=== PATIENT | male | born 1955 | race Asian ===

== ENCOUNTER 2023-07-25 16:32 | Inpatient (IN) | payer OTHER ==
[~2023-07-25] VITALS: Ht 170.2 cm; Wt 76.9 kg
[2023-07-25] MEDS: ASPirin 325 MG TAB PO ONE (16:54)
[2023-07-25 17:00] VITALS: PULSE 99; RESP 16; O2SAT 96
[2023-07-25] MEDS: NITROGLYCERIN 0.4 MG SL TAB SL ONE (17:00)
[2023-07-25 17:05] LABS: Basophils # (auto) 0.1 10 ^3/uL (0-0.2); Basophils % (auto) 0.9 % (0.0-2.0); Eosinophils # (auto) 0.2 10 ^3/uL (0-0.8); Eosinophils % (auto) 1.3 % (0.0-7.0); Hematocrit 42.9 % (41.0-53.0); Hemoglobin 14.1 g/dL (13.5-17.5); Lymphocytes # (auto) 1.4 10 ^3/uL (0.4-5.4); Lymphocytes % (auto) 11.2 % (10.0-50.0); Mean Corpuscular Hemoglobin 29.3 pg (28.0-32.0); Mean Corpuscular Hgb Conc. 32.8 g/dL (32.0-36.0); Mean Corpuscular Volume 89.4 fL (80.0-100.0); Monocytes # (auto) 0.7 10 ^3/uL (0-1.3); Monocytes % (auto) 5.9 % (0.0-12.0); Neutrophils # (auto) 10.2 10 ^3/uL (1.6-8.6); Neutrophils % (auto) 80.7 % (37.0-80.0); Nucleated Red Blood Cells % 0.1 %; Red Cell Distribution Width 13.8 % (11.8-14.3); White Blood Cell 12.6 10^3/uL (4.4-10.8)
[2023-07-25 17:22] LABS: Alanine Aminotransferase 21 U/L (7-40); Alkaline Phosphatase 76 U/L (46-116); Anion Gap 8 (5-15); Aspartate Aminotransferase 19 U/L (13-40); BUN/Creatinine Ratio 34.2 (10.0-20.0); Blood Urea Nitrogen 25 mg/dL (9-23); Calcium 8.3 mg/dL (8.7-10.4); Carbon Dioxide 23 mmol/L (20-30); Chloride 107 mmol/L (98-107); Glucose 194 mg/dL (74-106); Potassium 3.8 mmol/L (3.5-5.1); Sodium 138 mmol/L (136-145)
[2023-07-25 17:23] LABS: Bilirubin, Total 0.6 mg/dL (0.2-1.0)
[2023-07-25 17:29] LABS: INR 1.09 (0.9-1.15); Partial Thromboplastin Time 31.6 SEC (24.5-34.5); Prothrombin Time 11.4 sec (9.3-11.8)
[2023-07-25] MEDS: ENOXAPARIN SOD 80 MG/0.8ML SYRINGE SC ONE (17:59)
[2023-07-25] MEDS: FUROSEMIDE 20 MG/2 ML VIAL IV ONE (18:05)
[2023-07-25 19:40] VITALS: PULSE 98; RESP 16; O2SAT 95
[2023-07-25 20:14] LABS: Urine Bacteria None Seen /hpf (None Seen)
[2023-07-25 20:34] LABS: Urine Blood TRACE /uL (Negative); Urine Clarity Clear (Clear); Urine Color Yellow (Yellow); Urine Mucus FEW (None Seen); Urine Protein, UAD 2+ (Negative); Urine Specific Gravity 1.021 (1.001-1.035); Urine Urobilinogen Normal (Negative); Urine WBC 4 /hpf (0 - 3)
[2023-07-25] MEDS ORDERED: DOCUSATE SOD 100 MG CAP PO PRN (21:45)
[2023-07-25] MEDS ORDERED: DEXTROSE (50%) 50ML SYRG IV PRN (21:45)
[2023-07-25] MEDS ORDERED: hydrALAZINE HCL 20 MG/ML VL IV PRN (21:45)
[2023-07-25] MEDS: CARVEDILOL 3.125 MG TAB PO SCH (22:00)
[2023-07-25] MEDS: ACCU-CHEK COMFORT CURVE STRIP VI SCH (22:15)
[2023-07-25] MEDS: SODIUM CHLOR 0.9% PF (SALINE LOCK) 10ML VIAL/SYR IV SCH (22:20)
[2023-07-25] MEDS: ATORVASTATIN 20 MG TAB PO SCH (22:29)
[2023-07-25] MEDS: ALBUMIN 25% 100 ML IV ONE (22:29)
[2023-07-25] MEDS: InsuLIN REG 1unit/0.01ml Soln (100units/ml) SC SCH (22:30)
[2023-07-26] VITALS (11 sets, daily range): BP systolic 106–133; BP diastolic 59–82; PULSE 79–106; RESP 16–20; TEMP 97.6–97.8; O2SAT 98–100
[2023-07-26] MEDS: InsuLIN REG 1unit/0.01ml Soln (100units/ml) SC SCH (06:20)
[2023-07-26 06:23] LABS: Basophils # (auto) 0.1 10 ^3/uL (0-0.2); Basophils % (auto) 0.9 % (0.0-2.0); Eosinophils # (auto) 0.2 10 ^3/uL (0-0.8); Eosinophils % (auto) 1.8 % (0.0-7.0); Hematocrit 39.3 % (41.0-53.0); Hemoglobin 12.9 g/dL (13.5-17.5); Lymphocytes # (auto) 1.6 10 ^3/uL (0.4-5.4); Lymphocytes % (auto) 12.5 % (10.0-50.0); Mean Corpuscular Hemoglobin 29.4 pg (28.0-32.0); Mean Corpuscular Hgb Conc. 32.9 g/dL (32.0-36.0); Mean Corpuscular Volume 89.3 fL (80.0-100.0); Monocytes # (auto) 0.9 10 ^3/uL (0-1.3); Monocytes % (auto) 7.2 % (0.0-12.0); Neutrophils # (auto) 9.7 10 ^3/uL (1.6-8.6); Neutrophils % (auto) 77.6 % (37.0-80.0); Red Blood Cells 4.41 10^6/uL (4.5-5.90); Red Cell Distribution Width 13.4 % (11.8-14.3); White Blood Cell 12.5 10^3/uL (4.4-10.8)
[2023-07-26 06:40] LABS: Alanine Aminotransferase 19 U/L (7-40); Alkaline Phosphatase 65 U/L (46-116); Anion Gap 8 (5-15); Aspartate Aminotransferase 16 U/L (13-40); BUN/Creatinine Ratio 39.7 (10.0-20.0); Blood Urea Nitrogen 25 mg/dL (9-23); Calcium 7.9 mg/dL (8.5-10.1); Carbon Dioxide 22 mmol/L (20-30); Chloride 109 mmol/L (98-107); Glucose 147 mg/dL (74-106); Potassium 3.8 mmol/L (3.5-5.1); Sodium 139 mmol/L (136-145)
[2023-07-26 06:41] LABS: Bilirubin, Total 0.6 mg/dL (0.2-1.0); Total Protein 4.5 g/dL (5.7-8.2)
[2023-07-26] MEDS: HYDROcodone-ACET 5/325MG TAB PO PRN (08:56)
[2023-07-26] MEDS: CLOPIDOGREL BISULFATE 75 MG TAB PO SCH (10:30)
[2023-07-26] MEDS: ASPirin 81 mg TAB PO SCH (10:31)
[2023-07-26] MEDS: FUROSEMIDE 40 MG/4 ML VIAL IV SCH (10:31)
[2023-07-26] MEDS: cefTRIAXone 1GM/50ML D5W 50 ML IV ONE (15:22)
[2023-07-26] MEDS: NITROGLYCERIN 0.4 MG SL TAB SL PRN (15:47)
[2023-07-26] MEDS: MORPHINE SULFATE INJ 2 MG/ml SYRG IV PRN (15:54)
[2023-07-26] MEDS: ONDANSETRON HCL 4 MG/2 ML VIAL IV PRN (16:04)
[2023-07-26 18:08] LABS: Basophils # (auto) 0.1 10 ^3/uL (0-0.2); Basophils % (auto) 0.8 % (0.0-2.0); Eosinophils # (auto) 0.2 10 ^3/uL (0-0.8); Eosinophils % (auto) 1.8 % (0.0-7.0); Hematocrit 40.1 % (41.0-53.0); Hemoglobin 13.1 g/dL (13.5-17.5); Lymphocytes # (auto) 1.2 10 ^3/uL (0.4-5.4); Lymphocytes % (auto) 10.3 % (10.0-50.0); Mean Corpuscular Hemoglobin 29.3 pg (28.0-32.0); Mean Corpuscular Hgb Conc. 32.7 g/dL (32.0-36.0); Mean Corpuscular Volume 89.7 fL (80.0-100.0); Monocytes # (auto) 0.6 10 ^3/uL (0-1.3); Monocytes % (auto) 5.6 % (0.0-12.0); Neutrophils # (auto) 9.3 10 ^3/uL (1.6-8.6); Neutrophils % (auto) 81.5 % (37.0-80.0); Red Blood Cells 4.47 10^6/uL (4.5-5.90); Red Cell Distribution Width 13.5 % (11.8-14.3); White Blood Cell 11.5 10^3/uL (4.4-10.8)
[2023-07-26 18:23] LABS: INR 1.12 (0.9-1.15); Prothrombin Time 11.7 sec (9.3-11.8)
[2023-07-26 18:48] LABS: Erythrocyte Sedimentation Rate 17 mm/hr (0-20)
[2023-07-26] MEDS: HEPARIN DRIP/D5W 100UNITS/ML 250 ML IV SCH (18:51)
[2023-07-26] MEDS: ATORVASTATIN 20 MG TAB PO SCH (21:57)
[2023-07-26] MEDS: SACUBITRIL-VALSARTAN 24mg/26mg TAB PO SCH (21:57)
[2023-07-26] MEDS: COLCHICINE 0.6 MG CAP PO SCH (21:57)
[2023-07-26] MEDS: MAGNESIUM OXIDE 400 MG TAB PO SCH (21:57)
[2023-07-26] MEDS: METOPROLOL TARTRATE 25 MG TAB PO SCH (22:07)
[2023-07-27] VITALS (8 sets, daily range): BP systolic 101–142; BP diastolic 60–88; PULSE 67–92; RESP 14–20; TEMP 97.6–98.4; O2SAT 93–99
[2023-07-27 02:16] LABS: INR 1.09 (0.9-1.15); Partial Thromboplastin Time 34.4 SEC (24.5-34.5); Prothrombin Time 11.4 sec (9.3-11.8)
[2023-07-27] MEDS: HEPARIN SODIUM (PORCINE) 5000 UNITS/ML 1ML VIAL IV ONE ×2 (03:07→18:41)
[2023-07-27] MEDS: HEPARIN DRIP/D5W 100UNITS/ML 250 ML IV SCH ×2 (03:30→18:42)
[2023-07-27 06:42] LABS: Anion Gap 9 (5-15); Calcium 8.4 mg/dL (8.7-10.4); Carbon Dioxide 23 mmol/L (20-30); Chloride 105 mmol/L (98-107); Potassium 3.6 mmol/L (3.5-5.1); Sodium 137 mmol/L (136-145)
[2023-07-27 06:46] LABS: Glucose 131 mg/dL (74-106)
[2023-07-27 06:48] LABS: BUN/Creatinine Ratio 31.9 (10.0-20.0); Blood Urea Nitrogen 22 mg/dL (9-23)
[2023-07-27 06:50] LABS: Basophils # (auto) 0.1 10 ^3/uL (0-0.2); Basophils % (auto) 0.7 % (0.0-2.0); Eosinophils # (auto) 0.2 10 ^3/uL (0-0.8); Eosinophils % (auto) 1.8 % (0.0-7.0); Hematocrit 41.9 % (41.0-53.0); Lymphocytes # (auto) 2.1 10 ^3/uL (0.4-5.4); Lymphocytes % (auto) 16.5 % (10.0-50.0); Mean Corpuscular Hemoglobin 29.8 pg (28.0-32.0); Mean Corpuscular Hgb Conc. 33.5 g/dL (32.0-36.0); Mean Corpuscular Volume 89.2 fL (80.0-100.0); Monocytes % (auto) 7.7 % (0.0-12.0); Neutrophils # (auto) 9.4 10 ^3/uL (1.6-8.6); Neutrophils % (auto) 73.3 % (37.0-80.0); Nucleated Red Blood Cells % 0.1 %; Red Blood Cells 4.69 10^6/uL (4.5-5.90); Red Cell Distribution Width 13.5 % (11.8-14.3); White Blood Cell 12.9 10^3/uL (4.4-10.8)
[2023-07-27] MEDS: ACETAMINOPHEN 325 MG TAB PO PRN (07:43)
[2023-07-27] MEDS: cefTRIAXone 1GM/50ML D5W 50 ML IV SCH (08:11)
[2023-07-27] MEDS ORDERED: DAPAGLIFLOZIN 5 MG TAB PO SCH (10:00)
[2023-07-27 10:30] LABS: INR 1.12 (0.9-1.15); Partial Thromboplastin Time 49.8 SEC (24.5-34.5); Prothrombin Time 11.7 sec (9.3-11.8)
[2023-07-27] MEDS: EMPAGLIFLOZIN 10 MG TAB PO SCH (11:40)
[2023-07-27 11:42] LABS: Amphetamine Screen, Urine Neg (NEGATIVE); Barbiturate Scree,Urine Neg (NEGATIVE); Benzodiazephine Screen, Urine Neg (NEGATIVE); Cocaine Screen, Urine Neg (NEGATIVE)
[2023-07-27 11:43] LABS: Cannabinoid Screen, Urine Neg (NEGATIVE); Opiate Scree,Urine Neg (NEGATIVE); Phencyclidine Screen, Urine Neg (NEGATIVE)
[2023-07-27 11:54] LABS: Urine Bacteria FEW /hpf (None Seen); Urine Blood 3+ /uL (Negative); Urine Clarity Turbid (Clear); Urine Color Colorless (Yellow); Urine Hyaline Cast FEW /lpf (0 - 2); Urine Protein, UAD TRACE (Negative); Urine Specific Gravity 1.007 (1.001-1.035); Urine Urobilinogen Normal (Negative); Urine WBC 3 /hpf (0 - 3)
[2023-07-27 13:23] LABS: Hematocrit 39.7 % (41.0-53.0); Hemoglobin 13.2 g/dL (13.5-17.5)
[2023-07-27] MEDS: PANTOPRAZOLE 40 MG/10 ML VIAL INJ IV SCH (16:45)
[2023-07-27 17:01] LABS: INR 1.1 (0.9-1.15); Partial Thromboplastin Time 34.6 SEC (24.5-34.5); Prothrombin Time 11.5 sec (9.3-11.8)
[2023-07-27 17:20] LABS: Hemoglobin 14.8 g/dL (13.5-17.5)
[2023-07-27] MEDS: FUROSEMIDE 40 MG/4 ML VIAL IV SCH (18:25)
[2023-07-28] VITALS (12 sets, daily range): BP systolic 104–146; BP diastolic 64–82; PULSE 80–102; RESP 14–20; TEMP 97.7–98.3; O2SAT 92–97
[2023-07-28 00:44] LABS: Hematocrit 42.5 % (41.0-53.0)
[2023-07-28 01:14] LABS: INR 1.13 (0.9-1.15); Prothrombin Time 11.8 sec (9.3-11.8)
[2023-07-28 01:20] LABS: Partial Thromboplastin Time 118.4 SEC (24.5-34.5)
[2023-07-28] MEDS: HEPARIN DRIP/D5W 100UNITS/ML 250 ML IV SCH (02:53)
[2023-07-28 05:43] LABS: Basophils # (auto) 0.1 10 ^3/uL (0-0.2); Eosinophils # (auto) 0.2 10 ^3/uL (0-0.8); Eosinophils % (auto) 1.9 % (0.0-7.0); Hematocrit 41.3 % (41.0-53.0); Hemoglobin 13.7 g/dL (13.5-17.5); Lymphocytes # (auto) 2.2 10 ^3/uL (0.4-5.4); Lymphocytes % (auto) 18.6 % (10.0-50.0); Mean Corpuscular Hemoglobin 29.6 pg (28.0-32.0); Mean Corpuscular Hgb Conc. 33.2 g/dL (32.0-36.0); Mean Corpuscular Volume 89.3 fL (80.0-100.0); Monocytes # (auto) 0.9 10 ^3/uL (0-1.3); Monocytes % (auto) 7.9 % (0.0-12.0); Neutrophils # (auto) 8.4 10 ^3/uL (1.6-8.6); Neutrophils % (auto) 70.6 % (37.0-80.0); Red Blood Cells 4.63 10^6/uL (4.5-5.90); Red Cell Distribution Width 13.3 % (11.8-14.3); White Blood Cell 11.9 10^3/uL (4.4-10.8)
[2023-07-28 05:47] LABS: Anion Gap 9 (5-15); Carbon Dioxide 27 mmol/L (20-30); Chloride 103 mmol/L (98-107); Potassium 3.2 mmol/L (3.5-5.1); Sodium 139 mmol/L (136-145)
[2023-07-28 05:48] LABS: Calcium 8.1 mg/dL (8.7-10.4)
[2023-07-28 05:53] LABS: BUN/Creatinine Ratio 26.7 (10.0-20.0); Blood Urea Nitrogen 20 mg/dL (9-23); Glucose 132 mg/dL (74-106)
[2023-07-28] MEDS ORDERED: PANTOPRAZOLE 40 MG/10 ML VIAL INJ IV SCH (10:00)
[2023-07-28 10:43] LABS: INR 1.1 (0.9-1.15); Partial Thromboplastin Time 32.5 SEC (24.5-34.5); Prothrombin Time 11.5 sec (9.3-11.8)
[2023-07-28 12:09] LABS: Hematocrit 42.3 % (41.0-53.0); Hemoglobin 14.1 g/dL (13.5-17.5)
[2023-07-28] MEDS: HEPARIN SODIUM (PORCINE) 5000 UNITS/ML 1ML VIAL ONE (12:49)
[2023-07-28] MEDS: ANGIOMAX 250 MG VIAL IV ONE (12:49)
[2023-07-28] MEDS: fentaNYL CITRATE 100 MCG/2 ML VL ONE (12:50)
[2023-07-28] MEDS: VERAPAMIL 2.5MG/ML INJ 2ML VIAL IV ONE (12:50)
[2023-07-28] MEDS: SODIUM CHL 0.9% 0 ML ONE (12:50)
[2023-07-28] MEDS: MIDAZOLAM HCL 2MG/2ML 2ml VIAL (1mg/ml) ONE (12:50)
[2023-07-28] MEDS: IODIXANOL 320MG/ML 100ML BTL IV ONE ×2 (12:51→13:27)
[2023-07-28] MEDS: LIDOCAINE 2%HCL (LOCAL ANESTH.) INJ 20ML MDV ONE (12:51)
[2023-07-28] MEDS: ATROPINE SULF 0.5 MG/5ML SYR ONE (15:07)
[2023-07-28] MEDS: DOBUTamine 1000MCG/ML 100 ML IV ONE (15:07)
[2023-07-28] MEDS: DOBUTamine 1000MCG/ML 250 ML IV ONE (15:07)
[2023-07-28 18:29] LABS: Hematocrit 47.8 % (41.0-53.0); Hemoglobin 15.8 g/dL (13.5-17.5)
[2023-07-29] VITALS (8 sets, daily range): BP systolic 111–143; BP diastolic 59–74; PULSE 62–92; RESP 12–20; TEMP 97.5–98.3; O2SAT 94–98
[2023-07-29 09:52] LABS: Basophils # (auto) 0.1 10 ^3/uL (0-0.2); Basophils % (auto) 1.2 % (0.0-2.0); Eosinophils # (auto) 0.3 10 ^3/uL (0-0.8); Eosinophils % (auto) 2.8 % (0.0-7.0); Hemoglobin 15.1 g/dL (13.5-17.5); Lymphocytes # (auto) 1.7 10 ^3/uL (0.4-5.4); Lymphocytes % (auto) 15.9 % (10.0-50.0); Mean Corpuscular Hemoglobin 29.7 pg (28.0-32.0); Mean Corpuscular Hgb Conc. 33.6 g/dL (32.0-36.0); Mean Corpuscular Volume 88.4 fL (80.0-100.0); Monocytes % (auto) 8.9 % (0.0-12.0); Neutrophils # (auto) 7.6 10 ^3/uL (1.6-8.6); Neutrophils % (auto) 71.2 % (37.0-80.0); Red Blood Cells 5.09 10^6/uL (4.5-5.90); Red Cell Distribution Width 13.2 % (11.8-14.3); White Blood Cell 10.7 10^3/uL (4.4-10.8)
[2023-07-29] MEDS: ENOXAPARIN SOD 100 MG/1 ML SYRINGE SC SCH (10:00)
[2023-07-29] MEDS ORDERED: ENOXAPARIN SOD 40 MG/0.4 ML SYRINGE SC SCH (10:00)
[2023-07-29] MEDS: POTASSIUM CHL 20MEQ/100ML 100 ML IV SCH (10:14)
[2023-07-29 10:21] LABS: Anion Gap 8 (5-15); Calcium 8.2 mg/dL (8.5-10.1); Carbon Dioxide 26 mmol/L (20-30); Chloride 103 mmol/L (98-107); Potassium 3.5 mmol/L (3.5-5.1); Sodium 137 mmol/L (136-145)
[2023-07-29 10:27] LABS: BUN/Creatinine Ratio 20.6 (10.0-20.0); Blood Urea Nitrogen 13 mg/dL (9-23); Glucose 212 mg/dL (74-106)
[2023-07-30] VITALS (12 sets, daily range): BP systolic 119–148; BP diastolic 72–84; PULSE 78–93; RESP 15–20; TEMP 97.6–98; O2SAT 96–99
[2023-07-30] MEDS: LIDOCAINE 2%HCL (LOCAL ANESTH.) INJ 20ML MDV ONE (07:18)
[2023-07-30] MEDS: IODIXANOL 320MG/ML 100ML BTL IV ONE ×2 (07:18→08:07)
[2023-07-30] MEDS: HEPARIN IN NS 1000Units/500mL 1,500 ML ONE (07:19)
[2023-07-30 07:21] LABS: Basophils # (auto) 0.1 10 ^3/uL (0-0.2); Basophils % (auto) 1.2 % (0.0-2.0); Eosinophils # (auto) 0.3 10 ^3/uL (0-0.8); Eosinophils % (auto) 3.5 % (0.0-7.0); Hematocrit 42.5 % (41.0-53.0); Hemoglobin 14.3 g/dL (13.5-17.5); Lymphocytes # (auto) 2.3 10 ^3/uL (0.4-5.4); Lymphocytes % (auto) 22.6 % (10.0-50.0); Mean Corpuscular Hemoglobin 29.9 pg (28.0-32.0); Mean Corpuscular Hgb Conc. 33.7 g/dL (32.0-36.0); Mean Corpuscular Volume 88.8 fL (80.0-100.0); Monocytes # (auto) 0.7 10 ^3/uL (0-1.3); Monocytes % (auto) 7.5 % (0.0-12.0); Neutrophils # (auto) 6.5 10 ^3/uL (1.6-8.6); Neutrophils % (auto) 65.2 % (37.0-80.0); Red Blood Cells 4.78 10^6/uL (4.5-5.90); Red Cell Distribution Width 13.6 % (11.8-14.3); White Blood Cell 9.9 10^3/uL (4.4-10.8)
[2023-07-30] MEDS: HEPARIN SODIUM (PORCINE) 5000 UNITS/ML 1ML VIAL ONE (07:21)
[2023-07-30] MEDS: ANGIOMAX 250 MG VIAL IV ONE (07:21)
[2023-07-30] MEDS: MIDAZOLAM HCL 2MG/2ML 2ml VIAL (1mg/ml) ONE (07:22)
[2023-07-30] MEDS: fentaNYL CITRATE 100 MCG/2 ML VL ONE (07:22)
[2023-07-30] MEDS: SODIUM CHL 0.9% 50 ML ONE (07:22)
[2023-07-30] MEDS: VERAPAMIL 2.5MG/ML INJ 2ML VIAL IV ONE (07:22)
[2023-07-30 07:42] LABS: Chloride 103 mmol/L (98-107); Potassium 4.1 mmol/L (3.5-5.1); Sodium 138 mmol/L (136-145)
[2023-07-30 07:43] LABS: Anion Gap 5 (5-15); Calcium 8.5 mg/dL (8.5-10.1); Carbon Dioxide 30 mmol/L (20-30)
[2023-07-30 07:48] LABS: BUN/Creatinine Ratio 15.9 (10.0-20.0); Blood Urea Nitrogen 11 mg/dL (9-23); Glucose 142 mg/dL (74-106)
[2023-07-30] MEDS: ASPirin 325 MG TAB ONE (08:11)
[2023-07-30] MEDS ORDERED: CLOP75TA28 PO (11:59)
[2023-07-30] MEDS ORDERED: FURO1TAB31 PO (11:59)
[2023-07-30] MEDS ORDERED: METO25TA5 PO (11:59)
[2023-07-30] MEDS ORDERED: SACU1TAB PO (11:59)
[2023-07-30] MEDS ORDERED: ASPI-628 PO (11:59)
[2023-07-30] MEDS ORDERED: ATOR80TA PO (11:59)
[2023-07-30] MEDS ORDERED: MAGN400T40 PO (11:59)
[2023-07-30] MEDS ORDERED: EMPA1TAB PO (11:59)
== END 2023-07-30 17:21 | disposition home or self-care (01) | DRG 321 ==
LOC: ER 16:32 → TELE 23:53 → TELE-WESTW 07-26 06:40
PROVIDERS: ADMIT Nurse Practitioner Family; ATTEND Family Medicine
PROC: 4A023N7 Measurement of Cardiac Sampling and Pressure, Left Heart, Percutaneous Approach (ICD-10-PCS; 2023-07-28)
PROC: B211YZZ Fluoroscopy of Multiple Coronary Arteries using Other Contrast (ICD-10-PCS; 2023-07-28)
PROC: B215YZZ Fluoroscopy of Left Heart using Other Contrast (ICD-10-PCS; 2023-07-28)
PROC: 027137Z Dilation of Coronary Artery, Two Arteries with Four or More Drug-eluting Intraluminal Devices, Percutaneous Approach (ICD-10-PCS; principal; 2023-07-30)
PROC: 4A023N7 Measurement of Cardiac Sampling and Pressure, Left Heart, Percutaneous Approach (ICD-10-PCS; 2023-07-30)
PROC: B211YZZ Fluoroscopy of Multiple Coronary Arteries using Other Contrast (ICD-10-PCS; 2023-07-30)
PROC: B215YZZ Fluoroscopy of Left Heart using Other Contrast (ICD-10-PCS; 2023-07-30)
DX: I21.4 Non-ST elevation (NSTEMI) myocardial infarction (principal); I50.23 Acute on chronic systolic (congestive) heart failure; N39.0 Urinary tract infection, site not specified; K92.2 Gastrointestinal hemorrhage, unspecified; E11.65 Type 2 diabetes mellitus with hyperglycemia; I11.0 Hypertensive heart disease with heart failure; D72.829 Elevated white blood cell count, unspecified; I25.10 Atherosclerotic heart disease of native coronary artery without angina pectoris; I49.3 Ventricular premature depolarization; R31.9 Hematuria, unspecified; I08.1 Rheumatic disorders of both mitral and tricuspid valves; I25.5 Ischemic cardiomyopathy; Z79.4 Long term (current) use of insulin
CPT/HCPCS: 36415; 71045; 80048; 80053; 80061; 80307; 81001; 82962; 83036; 83735; 83880; 84443; 84484; 85014; 85018; 85025; 85610; 85652; 85730; 86141; 87086; 93005; 93017; 93306; 93350; 96365; 96372; 96375; 99152; C1874; C1887; C9113; G0378; J0461; J1815; J2250; J2405; J3480; P9047; Q9967